=== PATIENT | female | born 1955 | race Hispanic/Latino ===

== ENCOUNTER → 2019-01-25 | Outpatient (CLI) | payer MEDICARE ==
--- NOTE | 2019-01-25 11:48 | Diagnostic Imaging Report ---
EXAMINATION: CHEST 2 VIEWS, RIBS UNILAT W/CXR INDICATION: Right rib pain COMPARISON: None FINDINGS: LINES/TUBES:None LUNGS:The lungs are well-inflated. No focal consolidation or pulmonary edema. PLEURA:No pleural effusion or pneumothorax. MEDIASTINUM:The cardiac silhouette is enlarged. The thoracic aorta is tortuous. Atherosclerotic calcifications of the thoracic aorta. BONES/SOFT TISSUES:No displaced rib fractures. Exaggerated thoracic kyphosis. Degenerative changes of the visualized thoracic and lumbar spine. ABDOMEN:No free air under the diaphragm. IMPRESSION: No displaced right rib fractures. No focal pneumonia or pulmonary edema. Mild cardiomegaly. Signed by: Letitia Espinal MD on 01/25/2019 11:45 AM
== END ==
LOC: RAD 10:29
PROVIDERS: ATTEND Internal Medicine Critical Care Medicine
DX: R07.89 Other chest pain (principal)
CPT/HCPCS: 71046; 71101